=== PATIENT | female | born 1970 | race Caucasian/White ===

== ENCOUNTER 2016-09-21 11:23 | Emergency (ER) | payer BC ==
[2016-09-21 11:35] VITALS: BP 120/75
[2016-09-21] MEDS ORDERED: Ketorolac 60 MG/2 ML SDV IM ONE (14:29)
--- NOTE | 2016-09-21 16:03 | EDM.PDOC ---
ED HPI GENERAL MEDICAL PROBLEM - General Chief Complaint: Lower Extremity Injury/Pain Stated Complaint: LT LEG PAIN AND SWELLING Time Seen by Provider: 09/21/16 12:26 Source of Information: Reports: Patient, Family (), RN Notes Reviewed History Limitations: Reports: No Limitations - History of Present Illness INITIAL COMMENTS - FREE TEXT/NARRATIVE: The patient states that she has had left ankle pain for the past 2 weeks, after she twisted it. She states that she did not have any swelling until 2 or 3 weeks ago, but also complains of pain to both of her knees, both of her hips, and both of her hands. She has had a subjective fever. She reports recent bronchitis and sinusitis. The patient has a history of fibromyalgia, and a presumptive diagnosis of gout. She has been on Colcrys 0.6 mg daily for the past 3 years. The patient and her split their time between here in [place] and in [place]. The patient's PCP is Marily Brower while here, and Ernestina Kilgore while in [place]. Left Lower Leg Pain Score (Numeric/FACES): 8 - Related Data Allergies Allergy/AdvReac Type Severity Reaction Status Date / Time No Known Allergies Allergy Verified 10/03/13 15:38 CDT Home Meds: Home Meds Colchicine [Colcrys] 1 tab PO TID PRN 10/03/13 [History] Warfarin [Coumadin] 5 mg PO DAILY 10/03/13 [History] tiZANidine [Zanaflex] 8 mg PO TID PRN 10/03/13 [History] traMADol HCl [Ultram] 1 tab PO TID 10/03/13 [History] Levothyroxine 25 mcg PO DAILY 10/28/13 [History] Omeprazole 1 tab PO DAILY 10/28/13 [History] DULoxetine HCl [Cymbalta] 60 mg PO DAILY 09/21/16 [History] Gabapentin [Neurontin] 300 mg PO BID 09/21/16 [History] Lisinopril/Hydrochlorothiazide [Lisinopril-Hctz 10-12.5 mg Tab] 1 tab PO DAILY 09/21/16 [History] Topiramate 25 mg PO DAILY 09/21/16 [History] Zolpidem Tartrate [Ambien] 5 mg PO BEDTIME 09/21/16 [History] Past Medical History Cardiovascular History: Reports: Hypertension Gastrointestinal History: Reports: GERD Genitourinary History: Reports: Urinary Incontinence (stress incontinence) Musculoskeletal History: Reports: Arthritis, Back Pain, Chronic (DDD), Gout ( suspected, not confirmed) Neurological History: Reports: Migraines (suspected) Psychiatric History: Reports: Anxiety, Depression, Other (See Below) ( Fibromyalgia, Insomnia, RLS) Endocrine/Metabolic History: 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) Hematologic History: Reports: Anticoagulation Therapy, Other (See Below) ( Protein S deficiency, DVT x 3) - Past Surgical History HEENT Surgical History: Reports: Oral Surgery (Dental extractions) GI Surgical History: Reports: Appendectomy, Cholecystectomy Female Surgical History: Reports: Breast Biopsy (right x 2, left x 1), Section (x 1), Hysterectomy, Salpingo-Oophorectomy, Tubal Ligation Musculoskeletal Surgical History: Reports: Arthroscopic Knee (left) Dermatological Surgical History: Reports: Other (See Below) (Lipoma excisions x 8) Social & Family History - Family History Family Medical History: Noncontributory - Tobacco Use Smoking Status *Q: Former Smoker Years of Tobacco use: 6 Packs/Tins Daily: 1 Month Tobacco Last Used: Quit 1994 Second Hand Smoke Exposure: No - Alcohol Use Alcohol Use History: No Days Per Week of Alcohol Use: 0 - Recreational Drug Use Recreational Drug Use: No - Living Situation & Occupation Living situation: Reports: , with Spouse 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) Review of Systems - Review of Systems Review Of Systems: See Below Constitutional: Reports: No Symptoms Eyes: Reports: No Symptoms Ears: Reports: No Symptoms Nose: Reports: No Symptoms Mouth/Throat: Reports: No Symptoms Respiratory: Reports: No Symptoms Cardiovascular: Reports: No Symptoms GI/Abdominal: Reports: No Symptoms Genitourinary: Reports: No Symptoms Musculoskeletal: Reports: Other (Left ankle pain, bilateral knee pain, bilateral hip pain, bilateral hand pain, as per the HPI) Skin: Reports: No Symptoms Neurological: Reports: No Symptoms Psychiatric: Reports: No Symptoms ED EXAM, GENERAL - Physical Exam Exam: See Below Exam Limited By: No Limitations General Appearance: Alert, WD/WN, No Apparent Distress Eye Exam: Bilateral Eye: Normal Inspection Ears: Normal External Exam, Hearing Grossly Normal Nose: Normal Inspection, No Blood Throat/Mouth: Normal Inspection, Normal Lips, Normal Voice, No Airway Compromise Head: Atraumatic, Normocephalic Neck: Normal Inspection, Full Range of Motion Respiratory/Chest: No Respiratory Distress, Lungs Clear, Normal Breath Sounds, No Accessory Muscle Use Cardiovascular: Normal Peripheral Pulses, Regular Rate, Rhythm, No Gallop, No JVD, No Murmur, No Rub Peripheral Pulses: 4+: Radial (L), Radial (R), Popliteal (L), Popliteal (R), Posterior Tibial (L), Posterior Tibial (R), Dorsalis Pedis (L), Dorsalis Pedis ( R) GI/Abdominal: Normal Bowel Sounds, Soft, Non-Tender, No Organomegaly, No Distention, No Abnormal Bruit, No Mass, Other (Obese) (Female) Exam: Deferred Rectal (Female) Exam: Deferred Back Exam: Normal Inspection, Full Range of Motion, NT Extremities: Normal Inspection, Normal Range of Motion, No Pedal Edema, Normal Capillary Refill, Other (No visibility to either foot, leg, or knee, such as swelling, erythema, ecchymosis, or abrasion. The patient reports tenderness to palpation of the feet, knees, and lateral hips. No visible abnormalities to either hand, such as swelling, erythema, ecchymosis, or abrasion. The patient reports tenderness to palpation of the hands. Neurovascular status of the upper and lower extremities is intact.) Neurological: Alert, Oriented, Normal Cognition, No Motor/Sensory Deficits Psychiatric: Normal Affect Skin Exam: Warm, Dry, Intact, Normal Color, No Rash Lymphatic: No Adenopathy Course - Vital Signs Last Recorded V/S: Last Vital Signs Temp 36.8 C 09/21/16 11:31 Pulse 86 09/21/16 11:31 Resp 16 09/21/16 11:31 BP 120/75 09/21/16 11:31 Pulse Ox 98 09/21/16 11:31 - Orders/Labs/Meds Labs: Laboratory Tests 09/21/16 09/21/16 09/21/16 Range/Units 13:10 13:10 13:10 WBC 8.07 (3.98-10.04) K/mm3 RBC 4.94 (3.98-5.22) M/mm3 Hgb 13.9 (11.2-15.7) gm/L Hct 41.1 (34.1-44.9) % MCV 83.2 (79.4-94.8) fl MCH 28.1 (25.6-32.2) pg MCHC 33.8 (32.2-35.5) g/dl RDW Std Deviation 40.8 (36.4-46.3) fL Plt Count 234 (182-369) K/mm3 MPV 12.3 (9.4-12.3) fl Neutrophils % (Manual) 51 (40-60) % Band Neutrophils % 1 (0-10) % Lymphocytes % (Manual) 34 (20-40) % Atypical Lymphs % 5 % Monocytes % (Manual) 5 (2-10) % Eosinophils % (Manual) 3 (0.7-5.8) % Basophils % (Manual) 1 (0.1-1.2) Platelet Estimate Adequate Plt Morphology Comment Normal RBC Morph Comment Normal ESR 12 (0-20) mm/hr PT 15.7 H (8.0-13.0) SECONDS INR 1.41 D-Dimer, Quantitative (0.19-0.59) mg/L Sodium (136-145) mEq/L Potassium (3.5-5.1) mEq/L Chloride (98-107) mEq/L Carbon Dioxide (21-32) mEq/L Anion Gap (5-15) BUN (7-18) mg/dL Creatinine (0.55-1.02) mg/dL Est Cr Clr Drug Dosing mL/min Estimated GFR (MDRD) (>60) mL/min BUN/Creatinine Ratio (14-18) Glucose (74-106) mg/dL Calcium (8.5-10.1) mg/dL Total Bilirubin (0.2-1.0) mg/dL AST (15-37) U/L ALT (14-59) U/L Alkaline Phosphatase (46-116) U/L Creatine Kinase (26-192) U/L C-Reactive Protein (<1.0) mg/dL Total Protein (6.4-8.2) g/dl Albumin (3.4-5.0) g/dl Globulin gm/dL Albumin/Globulin Ratio (1-2) TSH 3rd Generation (0.358-3.74) uIU/mL 09/21/16 09/21/16 Range/Units 13:10 13:10 WBC (3.98-10.04) K/mm3 RBC (3.98-5.22) M/mm3 Hgb (11.2-15.7) gm/L Hct (34.1-44.9) % MCV (79.4-94.8) fl MCH (25.6-32.2) pg MCHC (32.2-35.5) g/dl RDW Std Deviation (36.4-46.3) fL Plt Count (182-369) K/mm3 MPV (9.4-12.3) fl Neutrophils % (Manual) (40-60) % Band Neutrophils % (0-10) % Lymphocytes % (Manual) (20-40) % Atypical Lymphs % % Monocytes % (Manual) (2-10) % Eosinophils % (Manual) (0.7-5.8) % Basophils % (Manual) (0.1-1.2) Platelet Estimate Plt Morphology Comment RBC Morph Comment ESR (0-20) mm/hr PT (8.0-13.0) SECONDS INR D-Dimer, Quantitative 0.20 (0.19-0.59) mg/L Sodium 139 (136-145) mEq/L Potassium 3.4 L (3.5-5.1) mEq/L Chloride 105 (98-107) mEq/L Carbon Dioxide 27 (21-32) mEq/L Anion Gap 10.4 (5-15) BUN 12 (7-18) mg/dL Creatinine 1.0 (0.55-1.02) mg/dL Est Cr Clr Drug Dosing 49.42 mL/min Estimated GFR (MDRD) 59 (>60) mL/min BUN/Creatinine Ratio 12.0 L (14-18) Glucose 103 (74-106) mg/dL Calcium 8.7 (8.5-10.1) mg/dL Total Bilirubin 0.5 (0.2-1.0) mg/dL AST 36 (15-37) U/L ALT 42 (14-59) U/L Alkaline Phosphatase 46 (46-116) U/L Creatine Kinase 461 H (26-192) U/L C-Reactive Protein < 0.2 (<1.0) mg/dL Total Protein 7.1 (6.4-8.2) g/dl Albumin 3.7 (3.4-5.0) g/dl Globulin 3.4 gm/dL Albumin/Globulin Ratio 1.1 (1-2) TSH 3rd Generation 3.294 (0.358-3.74) uIU/mL Meds: Medications Discontinued Medications Generic Name Dose Route Start Last Admin Trade Name Baljinder PRN Reason Stop Dose Admin Ketorolac Tromethamine 60 mg 09/21/16 14:29 09/21/16 14:36 Toradol IM 09/21/16 14:30 60 mg ONETIME ONE Administration - Re-Assessments/Exams Free Text/Narrative Re-Assessment/Exam: 09/21/16 15:58 Test results discussed with the patient and her . Today's workup is grossly unremarkable. Her inflammatory markers, including WBC count, ESR, and CRP, are all low. The patient's INR is subtherapeutic at 1.41, but her d-dimer is low, essentially excluding a DVT. Given the symmetric distribution of the patient's discomfort, it is very possible that her pain is due to her fibromyalgia, however, the patient's CPK is modestly elevated at 461. As the patient has not had any direct muscle injury , I suspect that the Colcrys is responsible. I am concerned that the patient does not have an established diagnosis of gout, but has been treated with this medication for about 3 years, far longer than recommended. I'm therefore recommending that she discontinue this medicine. If her symptoms resolve, then it was likely the Colcrys. If her symptoms do not resolve, then I would recommend either modification of her Cymbalta, or switching her to a different antidepressant. I will refer the patient to Dr. Lutz. Departure - Departure Time of Disposition: 16:03 Disposition: Home, Self-Care 01 Condition: Fair Clinical Impression: Extremity pain, Subtherapeutic international normalized ratio (INR), Elevated CPK - Discharge Information Referrals: Tiera Lutz [Physician] - Forms: ED Department Discharge Additional Instructions: You were seen in the emergency room for pain in your lower extremities and hands. Workup in the ER included a CBC, CMP, INR, ESR, CRP, TSH, CPK, and D-dimer. Your INR returned subtherapeutic at 1.41. Talk to whoever prescribes your Coumadin - you may need to be on a higher dose. Your inflammatory markers (WBC count, ESR, and CRP) are normal, demonstrating that your pain is not due to an arthritis or gout attack. Based on the distribution of your symptoms, it is MOST LIKELY that your symptoms are due to your fibromyalgia. Your CPK was found to be modestly elevated at 461. This is MOST LIKELY due to the Colcrys that you are taking. Because you do not have an established diagnosis of gout, and because you have been on this medication for longer than recommended, we are recommending that you discontinue the Colcrys. If your symptoms improve after discontinuing the Colcrys, then that was the likely cause, however, if your symptoms do not improve, then your fibromyalgia is the most likely cause. In that case, talk to Dr. Lutz about modification of your Cymbalta. If any other problems, please do not hesitate to return to the ER.
== END 2016-09-21 16:15 | disposition home or self-care (01) ==
LOC: JD.ED 11:23
DX: M79.605 Pain in left leg (principal); R79.1 Abnormal coagulation profile; R74.8 Abnormal levels of other serum enzymes; I10 Essential (primary) hypertension; K21.9 Gastro-esophageal reflux disease without esophagitis; F41.9 Anxiety disorder, unspecified; F32.9 Major depressive disorder, single episode, unspecified; E03.9 Hypothyroidism, unspecified; Z90.49 Acquired absence of other specified parts of digestive tract; Z79.01 Long term (current) use of anticoagulants; Z79.899 Other long term (current) drug therapy; Z90.710 Acquired absence of both cervix and uterus; Z87.891 Personal history of nicotine dependence
CPT/HCPCS: 36415; 80053; 82550; 84443; 85025; 85379; 85610; 85652; 86140; 96372; 99284; J1885; 99283